=== PATIENT | female | born 1955 | race Caucasian/White ===

== ENCOUNTER 2019-08-23 08:40 | Emergency (ER) | payer OTHER ==
[2019-08-23] MEDS ORDERED: PROMETHAZINE 25 MG/ML VIAL ONE (09:36)
[2019-08-23] MEDS ORDERED: MORPHINE 4 MG/ML SYR ONE (09:36)
[2019-08-23] MEDS ORDERED: NA CHLORIDE 0.9% 1,000 ML ONE (09:36)
--- NOTE | 2019-08-23 09:41 | EKG ---
Test Date: 2019-08-23 Test Time: 09:18:54 Supervisor [employer]: KAROLYN MEASUREMENT RESULTS: Intervals: Rate: 77 IA: 144 QRSD: 74 QT: 410 QTc: 463 [place]: P: 36 IA: 144 QRS: 20 T: 7 INTERPRETIVE STATEMENTS: Normal sinus rhythm Normal ECG Compared to ECG 12/19/2007 12:58:41 Sinus arrhythmia no longer present Electronically Signed On 08-23-19 09:41:30 BUSINESS UNIT MANAGER by Shahab Benson
[2019-08-23 09:50] LABS: Absolute Lymphocytes (CBC) 1.4 K/uL (0.7-4.9); Basophils % 0.7 % (0-1.3); Hematocrit 37.6 % (36.0-45.0); MPV 7.9 fL (7.6-11.3); RBC Red Blood Cell Count 4.91 M/uL (3.86-4.86)
[2019-08-23 10:15] LABS: ALT/SGPT 17 U/L (12-78); AST/SGOT 23 U/L (15-37); Albumin 4.3 g/dL (3.4-5.0); Alkaline Phosphatase 115 U/L (45-117); BUN Blood Urea Nitrogen 12 mg/dL (7-18); Bicarbonate 29 mmol/L (21-32); Bilirubin Direct 0.1 mg/dL (0-0.2); Bilirubin Total 0.4 mg/dL (0.2-1.0); Glucose Level 115 mg/dL (74-106); Lipase 168 U/L (73-393); Potassium 3.2 mmol/L (3.5-5.1); Sodium Level 140 mmol/L (136-145); Troponin (Emerg Dept Use Only) < 0.02 ng/mL (0.0-0.045)
--- NOTE | 2019-08-23 11:00 | RAD REPORT ---
EXAM DESCRIPTION: CTAbdomen Pelvis W Contrast - 08/23/2019 10:46 am CLINICAL HISTORY: Abdominal pain. Abd pain;Nausea / vomiting COMPARISON: No comparisons TECHNIQUE: Biphasic CT imaging of the abdomen and pelvis was performed with 100 ml non-ionic IV cont rast. All CT scans are performed using dose optimization technique as appropriate and may include automated exposure control or mA/KV adjustment according to patient size. FINDINGS: Linear atelectasis is present in left base.Postsurgical changes are present of gastric byp ass with a small hiatal hernia. The intrahepatic biliary tree is prominent. Cholecystectomy clips are evident. No aggressive liver le sions seen. The spleen, pancreas and adrenal glands are normal. Areas of scarring are present in the left kidney. Small bilateral renal cysts. No hydronephrosis. No bowel obstruction, free air, free fluid or abscess. The appendix is normal. No evidence of signi ficant lymphadenopathy. Mild lumbosacral degenerative changes. IMPRESSION: No acute intra-abdominal or pelvic finding. Postsurgical changes of gastric bypass with moderate hiatal hernia.
--- NOTE | 2019-08-23 11:15 | ER ---
Nurse's Notes [facility] Name: Sahra Thompson Age: 64 yrs Sex: Female : 1955 Arrival Date: 08/23/2019 Time: 08:43 Bed 4 Private MD: Diagnosis: Vomiting Presentation: 08/23 09:12 Presenting complaint: Patient states: was vomiting over the weekend, dry heaving iw yesterday, has no energy, can't tolerate fluids. Transition of care: patient was not received from another setting of care. Onset of symptoms was August 20, 2019. Risk Assessment: Do you want to hurt yourself or someone else? Patient reports no desire to harm self or others. 09:12 Method Of Arrival: Wheelchair iw 09:12 Acuity: OLIVER 3 iw 09:20 Initial Sepsis Screen: Does the patient meet any 2 criteria? No. Patient's initial sg sepsis screen is negative. Does the patient have a suspected source of infection? No. Patient's initial sepsis screen is negative. Care prior to arrival: None. Historical: - Allergies: 09:52 PENICILLINS; sg 09:52 Sulfa (Sulfonamide Antibiotics); sg - PMHx: 09:52 Lupus; Fibroid; sg - Immunization history:: Adult Immunizations up to date. - Social history:: Smoking status: Patient/guardian denies using tobacco. - Ebola Screening: : Patient negative for fever greater than or equal to 101.5 degrees Fahrenheit, and additional compatible Ebola Virus Disease symptoms Patient denies exposure to infectious person Patient denies travel to an Ebola-affected area in the 21 days before illness onset No symptoms or risks identified at this time. Screenin:30 Abuse screen: Denies threats or abuse. Denies injuries from another. Nutritional sg screening: No deficits noted. Tuberculosis screening: No symptoms or risk factors identified. Never had TB. Fall Risk None identified. Assessment: 09:53 Reassessment: Patient appears in no apparent distress at this time. sg 09:53 General: Appears in no apparent distress. ill, well groomed, well developed, well sg nourished, Behavior is cooperative, appropriate for age, quiet. Pain: Denies pain. Neuro: Level of Consciousness is awake, alert, obeys commands, Oriented to person, place, time, situation, Poiser are equal bilaterally. Cardiovascular: Heart tones S1 S2 present Patient's skin is warm and dry. Chest pain is denied. Respiratory: Airway is patent Respiratory effort is even, unlabored, Respiratory pattern is regular, symmetrical. Vital Signs: 09:50 Pulse 83; Resp 17; Temp 97.7; Pulse Ox 98% on R/A; sg 09:53 BP 152 / 100; sg 10:25 BP 115 / 89; Pulse 77; Resp 17; Pulse Ox 99% on R/A; sg 11:40 BP 156 / 99; Pulse 72; Resp 17; Pulse Ox 100% on R/A; Pain 0/10; sg 11:40 pt reports now that her nausae/vomiting has gotten better, will take normal BP sg medications at home ED Course: 08:43 Patient arrived in ED. mr 09:09 Zak Castillo NP is PHCP. pm1 09:09 Zaire Patterson MD is Attending Physician. pm1 09:13 Triage completed. iw 09:27 EKG done, by cephalometric technician. reviewed by Zak Castillo NP. at1 09:30 Initial lab(s) drawn, by ca, sent to lab. Inserted saline lock: 22 gauge in right sg wrist, using aseptic technique. Blood collected. 09:33 Jeffery Abdalla, RN is Primary Nurse. sg 09:52 Patient has correct armband on for positive identification. Bed in low position. Call sg light in reach. Side rails up X2. Pulse ox on. NIBP on. Warm blanket given. Head of bed elevated. 09:52 Arm band placed on. sg 10:45 Patient moved back from CT. sg 10:46 CT Abd/Pelvis - IV Contrast Only In Process Unspecified. EDMS 11:40 No provider procedures requiring assistance completed. IV discontinued, intact, sg bleeding controlled, No redness/swelling at site. Pressure dressing applied. Administered Medications: 09:38 Drug: Phenergan 12.5 mg Route: IVP; Site: right wrist; sg 10:22 Follow up: Response: No adverse reaction; Nausea is decreased sg 09:40 Drug: morphine 4 mg Route: IVP; Site: right wrist; sg 10:23 Follow up: Response: No adverse reaction; RASS: Drowsy (-1) sg 09:42 Drug: NS 0.9% 1000 ml Route: IV; Rate: 1000 ml; Site: right wrist; sg 10:30 Follow up: Response: No adverse reaction; IV Status: Completed infusion; IV Intake: sg 1000ml 11:40 Drug: Potassium Chloride 40 mEq Route: PO; sg 11:42 Follow up: Response: No adverse reaction; Medication administered at discharge. sg Intake: 10:30 IV: 1000ml; Total: 1000ml. sg Outcome: 11:14 Discharge ordered by MD. pm1 11:40 Discharged to home ambulatory, with family. sg 11:40 Condition: good 11:40 Discharge instructions given to patient, family, Instructed on discharge instructions, follow up and referral plans. no drinking with medication, no driving heavy equipment, medication usage, safety practices, Demonstrated understanding of instructions, follow-up care, medications, Prescriptions given X 2. 11:43 Patient left the ED. sg 11:44 Patient left the ED. sg 11:47 Patient left the ED. sg Signatures: Dispatcher [employer] EDMS Jeffery Abdalla RN RN sg Vickie Kern Irene RN Izabella Canela, director workers compensation EKG Tat1 Zak Castillo, SLAB GRINDER SLAB GRINDER pm1 Corrections: (The following items were deleted from the chart) 10:26 10:25 BP 115 / 89; Pulse 17bpm; Resp 17bpm; Pulse Ox 99% RA; sg sg
--- NOTE | 2019-08-23 11:16 | EDPHYS ---
Physician Documentation [facility] Name: Sahra Thompson Age: 64 yrs Sex: Female : 1955 Arrival Date: 08/23/2019 Time: 08:43 Bed 4 Private MD: ED Physician Zaire Patterson HPI: 08/23 09:35 This 64 yrs old Female presents to ER via Wheelchair with complaints of pm1 Nausea/Vomiting. 09:35 The patient presents to the emergency department with nausea, vomiting. Onset: The pm1 symptoms/episode began/occurred yesterday. Possible causes: bad food or stomach virus. The symptoms are aggravated by nothing. The symptoms are alleviated by nothing. Associated signs and symptoms: Pertinent negatives: abdominal pain, constipation, diarrhea, dysuria, fever. Severity of symptoms: in the emergency department the symptoms are worse Pain is currently a 0 / 10. The patient has not recently seen a physician. Historical: - Allergies: 09:52 PENICILLINS; sg 09:52 Sulfa (Sulfonamide Antibiotics); sg - PMHx: 09:52 Lupus; Fibroid; sg - Immunization history:: Adult Immunizations up to date. - Social history:: Smoking status: Patient/guardian denies using tobacco. - Ebola Screening: : Patient negative for fever greater than or equal to 101.5 degrees Fahrenheit, and additional compatible Ebola Virus Disease symptoms Patient denies exposure to infectious person Patient denies travel to an Ebola-affected area in the 21 days before illness onset No symptoms or risks identified at this time. ROS: 09:35 Constitutional: Negative for fever, chills, and weight loss, Eyes: Negative for injury, pm1 pain, redness, and discharge, ENT: Negative for injury, pain, and discharge, Neck: Negative for injury, pain, and swelling, Cardiovascular: Negative for chest pain, palpitations, and edema, Respiratory: Negative for shortness of breath, cough, wheezing, and pleuritic chest pain. 09:35 Back: Negative for injury and pain, : Negative for injury, bleeding, discharge, and swelling, MS/Extremity: Negative for injury and deformity, Skin: Negative for injury, rash, and discoloration, Neuro: Negative for headache, weakness, numbness, tingling, and seizure. 09:35 Abdomen/GI: Positive for nausea and vomiting, Negative for abdominal pain, diarrhea, constipation. Exam: 09:35 Constitutional: This is a well developed, well nourished patient who is awake, alert, pm1 and in no acute distress. Head/Face: Normocephalic, atraumatic. Neck: Trachea midline, no thyromegaly or masses palpated, and no cervical lymphadenopathy. Supple, full range of motion without nuchal rigidity, or vertebral point tenderness. No Meningismus. Chest/axilla: Normal chest wall appearance and motion. Nontender with no deformity. No lesions are appreciated. Cardiovascular: Regular rate and rhythm with a normal S1 and S2. No gallops, murmurs, or rubs. Normal PMI, no JVD. No pulse deficits. Respiratory: Lungs have equal breath sounds bilaterally, clear to auscultation and percussion. No rales, rhonchi or wheezes noted. No increased work of breathing, no retractions or nasal flaring. Abdomen/GI: Soft, non-tender, with normal bowel sounds. No distension or tympany. No guarding or rebound. No evidence of tenderness throughout. Back: No spinal tenderness. No costovertebral tenderness. Full range of motion. Skin: Warm, dry with normal turgor. Normal color with no rashes, no lesions, and no evidence of cellulitis. MS/ Extremity: Pulses equal, no cyanosis. Neurovascular intact. Full, normal range of motion. 09:35 Neuro: Orientation: is normal, Motor: is normal, moves all fours. Vital Signs: 09:50 Pulse 83; Resp 17; Temp 97.7; Pulse Ox 98% on R/A; sg 09:53 BP 152 / 100; sg 10:25 BP 115 / 89; Pulse 77; Resp 17; Pulse Ox 99% on R/A; sg 11:40 BP 156 / 99; Pulse 72; Resp 17; Pulse Ox 100% on R/A; Pain 0/10; sg 11:40 pt reports now that her nausae/vomiting has gotten better, will take normal BP sg medications at home MDM: 09:10 Patient medically screened. pm1 11:14 Data reviewed: vital signs. Data interpreted: Pulse oximetry: on room air is 99 %. pm1 Interpretation: normal. Counseling: I had a detailed discussion with the patient and/or guardian regarding: the historical points, exam findings, and any diagnostic results supporting the discharge/admit diagnosis, lab results, radiology results, the need for outpatient follow up, to return to the emergency department if symptoms worsen or persist or if there are any questions or concerns that arise at home. 08/23 09:14 Order name: Basic Metabolic Panel; Complete Time: 10:18 pm1 08/23 09:14 Order name: CBC with Diff; Complete Time: 10:11 pm1 08/23 09:14 Order name: Creatinine for Radiology; Complete Time: 10:18 pm1 08/23 09:14 Order name: Hepatic Function; Complete Time: 10:18 pm1 08/23 09:14 Order name: Lipase; Complete Time: 10:18 pm1 08/23 09:15 Order name: Troponin (emerg Dept Use Only); Complete Time: 10:18 pm1 08/23 09:14 Order name: IV Saline Lock; Complete Time: 10:22 pm1 08/23 09:14 Order name: Labs collected and sent; Complete Time: 10:22 pm1 08/23 09:15 Order name: EKG; Complete Time: 09:16 pm1 08/23 09:16 Order name: CT Abd/Pelvis - IV Contrast Only; Complete Time: 11:04 pm1 08/23 09:15 Order name: EKG - Nurse/Tech; Complete Time: 09:16 pm1 Administered Medications: 09:38 Drug: Phenergan 12.5 mg Route: IVP; Site: right wrist; sg 10:22 Follow up: Response: No adverse reaction; Nausea is decreased sg 09:40 Drug: morphine 4 mg Route: IVP; Site: right wrist; sg 10:23 Follow up: Response: No adverse reaction; RASS: Drowsy (-1) sg 09:42 Drug: NS 0.9% 1000 ml Route: IV; Rate: 1000 ml; Site: right wrist; sg 10:30 Follow up: Response: No adverse reaction; IV Status: Completed infusion; IV Intake: sg 1000ml 11:40 Drug: Potassium Chloride 40 mEq Route: PO; sg 11:42 Follow up: Response: No adverse reaction; Medication administered at discharge. sg Disposition: 08/23/19 11:14 Discharged to Home. Impression: Vomiting. - Condition is Stable. - Discharge Instructions: Nausea and Vomiting, Adult, Viral Gastroenteritis, Adult. - Prescriptions for Phenergan 12.5 mg Rectal Suppository - insert 1 suppository by RECTAL route every 6 hours As needed; 12 suppository. promethazine 25 mg Oral Tablet - take 1 tablet by ORAL route every 6 hours As needed; 20 tablet. - Medication Reconciliation Form, Thank You Letter, Antibiotic Education, Prescription Opioid Use form. - Follow up: Emergency Department; When: As needed; Reason: Worsening of condition. Follow up: Private Physician; When: 2 - 3 days; Reason: Recheck today's complaints, Continuance of care, Re-evaluation by your physician. - Problem is new. - Symptoms have improved. Signatures: Dispatcher [employer] EDMS Jeffery Abdalla RN RN sg Zak Castillo NP SERVICE DESK ASSOCIATE pm1 Corrections: (The following items were deleted from the chart) 11:15 11:14 08/23/2019 11:14 Discharged to Home. Impression: Vomiting. Condition is Stable. pm1 Forms are Medication Reconciliation Form, Thank You Letter, Antibiotic Education, Prescription Opioid Use. Follow up: Emergency Department; When: As needed; Reason: Worsening of condition. Follow up: Private Physician; When: 2 - 3 days; Reason: Recheck today's complaints, Continuance of care, Re-evaluation by your physician. Problem is new. Symptoms have improved. pm1 11:43 11:15 08/23/2019 11:14 Discharged to Home. Impression: Vomiting. Condition is Stable. sg Forms are Medication Reconciliation Form, Thank You Letter, Antibiotic Education, Prescription Opioid Use. Follow up: Emergency Department; When: As needed; Reason: Worsening of condition. Follow up: Private Physician; When: 2 - 3 days; Reason: Recheck today's complaints, Continuance of care, Re-evaluation by your physician. Problem is new. Symptoms have improved. pm1 11:44 11:43 08/23/2019 11:14 Discharged to Home. Impression: Vomiting. Condition is Stable. sg Discharge Instructions: Nausea and Vomiting, Adult, Viral Gastroenteritis, Adult. Prescriptions for Phenergan 12.5 mg Rectal Suppository - insert 1 suppository by RECTAL route every 6 hours As needed; 12 suppository, promethazine 25 mg Oral Tablet - take 1 tablet by ORAL route every 6 hours As needed; 20 tablet. and Forms are Medication Reconciliation Form, Thank You Letter, Antibiotic Education, Prescription Opioid Use. Follow up: Emergency Department; When: As needed; Reason: Worsening of condition. Follow up: Private Physician; When: 2 - 3 days; Reason: Recheck today's complaints, Continuance of care, Re-evaluation by your physician. Problem is new. Symptoms have improved. 11:47 11:44 08/23/2019 11:14 Discharged to Home. Impression: Vomiting. Condition is Stable. sg Discharge Instructions: Nausea and Vomiting, Adult, Viral Gastroenteritis, Adult. Prescriptions for Phenergan 12.5 mg Rectal Suppository - insert 1 suppository by RECTAL route every 6 hours As needed; 12 suppository, promethazine 25 mg Oral Tablet - take 1 tablet by ORAL route every 6 hours As needed; 20 tablet. and Forms are Medication Reconciliation Form, Thank You Letter, Antibiotic Education, Prescription Opioid Use. Follow up: Emergency Department; When: As needed; Reason: Worsening of condition. Follow up: Private Physician; When: 2 - 3 days; Reason: Recheck today's complaints, Continuance of care, Re-evaluation by your physician. Problem is new. Symptoms have improved.
[2019-08-23] MEDS ORDERED: POTASSIUM CL SA 10 MEQ TAB PO ONE (11:33)
[2019-08-23 11:56] VITALS: TEMP 97.7
[2019-08-23 11:59] VITALS: BP 115/89; O2SAT 99
== END 2019-08-23 11:47 | disposition home or self-care (01) ==
LOC: ER 08:40
DX: R11.10 Vomiting, unspecified (principal); Z88.0 Allergy status to penicillin; Z88.2 Allergy status to sulfonamides
CPT/HCPCS: 96361; 93005; 85025; 80048; 36415; 80076; 84484; 83690; 74177; 96375; 96374; 99285; Q9967; J2550; J7030